=== PATIENT | male | born 1965 | race Caucasian/White ===

== ENCOUNTER → 2021-06-04 11:19 | Outpatient (CLI) | payer OTHER, SELFPAY ==
--- NOTE | ~2021-06-04 | US_ITS ---
EXAMINATION: US scrotum doppler EXAM DATE: 06/04/2021 11:47 INDICATION: Left testicular swelling . TECHNIQUE: Multiple grayscale and Doppler images of the testicles and scrotum were obtained bilateral ly. There is no prior study for comparison. FINDINGS: Right testicle measures 4.8 x 3.1 x 3.8 cm and is morphologically normal. Low resistance Doppler lynn w confirmed. The epididymis is unremarkable. Small hydrocele. Left testicle measures 3.9 x 3.4 x 3.4 cm and is morphologically normal. Low resistance Doppler flow confirmed. Small epididymal cyst measuring 1 cm. There is a moderate to large sized hydrocele. IMPRESSION: 1. Moderate to large size left-sided hydrocele. 2. Small right hydrocele. Reviewed, dictated and finalized at location [facility]
== END ==
PROVIDERS: PCP Family Medicine; Visit Provider Family Medicine
DX: N50.89 Other specified disorders of the male genital organs (principal); N43.3 Hydrocele, unspecified
CPT/HCPCS: 76870; 93976

== ENCOUNTER 2022-12-15 01:20 | Day surgery (SDC) | payer OTHER, SELFPAY ==
[2022-12-07 12:48] VITALS: BMI 30.5
--- NOTE | 2022-12-07 13:14 | PC.NURSE ---
Report to the Outpatient Waiting Room, entrance under the green pavilion located off [facility], at time __0630 on date _12/15/22 . Planned Procedure Time: _0830 . Time changes happen often and if your time is changed the preop area will call you the afternoon before. - You and your visitor will be asked to self-screen and do not enter if you have any COVID symptoms. - A mask is optional within the hospital at this time. Patients may have clear liquids (water, carbonated beverages, clear teas, apple juice) until 3 hours prior to surgery with a maximum of 20 ounces. - No food from midnight until time of surgery Take the following medications with a SIP of water the morning of surgery: _AMIODORONE; METOPROLOL DO NOT STOP ANY OF YOUR OTHER PRESCRIPTION MEDICATIONS PRIOR TO SURGERY ?EXCEPT THE FOLLOWING Medications to discontinue per physician _ASA AND PLAVIX D/C 12/07/22 ELIQUIS D/C 12/09/22 PER YOUR MD'S PRIOR INSTRUCTION Date to take last dose Please no make-up, nail croatian, hairspray, perfume, deodorant, or body powder the day of surgery. No jewelry (including any body piercings) or valuables the day of surgery, leave them at home. Please take a shower or bath the night before, or the morning of, surgery with an antibacterial soap. Wear comfortable, loose fitting clothing. - Jewelry must be removed prior to entering the operating room. Rings and piercings that are not removed may be cut off. - The hospital will not accept responsibility for valuables. - Please leave all valuables, including medications, at home the day of surgery. If you are going home after surgery, a licensed motorcoach driver must drive you home. - NO public transportation without another adult if you receive anesthesia. - We recommend that an adult stay with you for 24 hours following discharge. - We also recommend that you do not drive, make important decision, drink alcoholic beverages, or take any drugs that were not prescribed by your health care provider for at least 24 hours after your discharge time. Follow any additional instructions given to you from your surgeon. If you or anyone in your household have experienced Covid symptoms in the past week, please notify your surgeon or the nurse liaison at the phone number below for possible testing. Telephone instructions given to _RON__and asked if any additional questions and then verbalized understanding. Patient advised to call surgeon office or pre surgery nurse liaison [phone] if any additional questions.
--- NOTE | 2022-12-14 11:36 | WPDANESEPPF ---
Anes - Initial Pre Proc Eval Procedure: Operation Date: 12/15/22 08:30 Proposed Procedures p Left Hydrocelectomy with Orchiopexy - Justino Taylor MD Date/Time: 12/14/22 11:36 Surgeon: Justino Taylor MD Pre Op Diagnosis: Hydrocele Patient Data Age: 57 Gender: M Height: 1.98 m Weight: 120 kg Allergies Allergy/AdvReac Type Severity Reaction Status Date / Time Penicillins Allergy Intermediate Hives Verified 12/15/22 07:13 Home Medications Medication Instructions Recorded Confirmed Type amiodarone 200 mg tablet 200 mg PO DAILY 12/07/22 12/15/22 History apixaban 5 mg tablet (Eliquis) 5 mg PO DAILY 12/07/22 12/15/22 History aspirin 81 mg chewable tablet 81 mg PO DAILY 12/07/22 12/15/22 History atorvastatin 40 mg tablet 40 mg PO DAILY 12/07/22 12/15/22 History clopidogrel 75 mg tablet 75 mg PO DAILY 12/07/22 12/15/22 History empagliflozin 10 mg tablet 10 mg PO DAILY 12/07/22 12/15/22 History (Jardiance) metoprolol succinate 50 mg 25 mg PO BID 12/07/22 12/15/22 History tablet,extended release 24 hr sacubitril 49 mg-valsartan 51 mg 1 tablet PO BID 12/07/22 12/15/22 History tablet (Entresto) spironolactone 25 mg tablet 25 mg PO DAILY 12/07/22 12/15/22 History Patient hx anesthesia problems: none Family hx anesthesia problems: none Results Review: All pre-operative results and documents have been reviewed as part of the pre-operative evaluation. [facility] Past Medical History Medical History (Updated 12/14/22 @ 11:37 by Nicko Gonzalez DO) Atrial fibrillation History of heart attack Surgical History Surgical History (Updated 12/14/22 @ 11:37 by Nicko Gonzalez DO) History of coronary artery stent placement 02/2022 Social History Social History (Updated 12/15/22 @ 07:59 by Nicko Gonzalez DO) Smoking packs per day: 1 Smoking cigarettes per day: 20.0 Years smoked: 15 Smoking pack-years: 15.00 Smoking status: Former smoker Tobacco type: smokeless tobacco Smokeless tobacco user: chewing tobacco and snuff Alcohol intake: current Alcohol use details: 8-10 beers/day Substance use type: marijuana Other substance usage details: SMOKES + EDIBLES daily Last use: 12/07/22 Living arrangements: with family Spiritual care concerns: No Anes - Eval Final PreProcedure Day of Procedure 12/14/22 11:36 Patient weight: obese Heart: regular rate and rhythm Lungs: clear to auscultation Airway: Mallampati scale class II Neurological: alert and oriented Last oral intake: >/= 8 hours ASA classification: III Emergent: no Anesthetic plan: proceed Anesthesia type and monitoring: general GIVS and standard monitoring Results Review: All pre-operative results and documents have been reviewed as part of the pre-operative evaluation. Informed Consent: The patient's anesthetic plan and its attendant risks and benefits were discussed with the patient/family/POA. Questions were solicited and answers provided to the satisfaction of the patient/family/POA.
[2022-12-15] VITALS (7 sets, daily range): BP systolic 107–130; BP diastolic 71–79; PULSE 44–62; RESP 12–17; TEMP 36–36.7; O2SAT 92–100
[2022-12-15] MEDS: LACTATED RINGERS 1,000 ML 30 ML IV CONT ×2 (07:32→09:21)
--- NOTE | 2022-12-15 07:39 | WPDHPUPDATE1 ---
History and Physical Update Update Date/Time: 12/15/22 07:39 History and Physical has been reviewed, including an updated exam of the patient. There are NO changes in the patient's condition. Risks, benefits, and alternatives have been discussed and questions answered. Patient agrees to proceed with procedure. Proceed with left hydrocelectomy, orchiopexy
[2022-12-15 07:45] LABS: Anion Gap 6 mmol/L (8-16); Blood Urea Nitrogen 16 mg/dL (9-20); Calcium 8.8 mg/dL (8.4-10.2); Carbon Dioxide 29 mmol/L (22-30); Chloride 101 mmol/L (98-107); Estimated CRCL calculation 148 ml/min; Estimated Glomerular Filt Rate > 60; Glucose 103 mg/dL (65-110); Potassium 4.2 mmol/L (3.4-5.0); Sodium 136 mmol/L (137-145)
[2022-12-15] MEDS: ceFAZolin 3 GM/D5W 100 ML 100 ML IVPB (08:24)
[2022-12-15] MEDS: LIDOCAINE HCL 1% LOCAL INJ 20 ML VIAL INFILTRATE (08:24)
[2022-12-15] MEDS: NEOMYCIN/POLYMYXIN B/PRAMOXINE 15 GM CREAM 1 APPLIC TOPICAL (09:04)
--- NOTE | 2022-12-15 09:16 | W.PM.PROC2 ---
Procedure Note - Detailed Date of Procedure 12/15/22 Pre-op Diagnosis Left hydrocele Post-op Diagnosis Same Procedure Performed Left hydrocelectomy with left orchiopexy Surgeon Justino Taylor MD Anesthesia General Description of Procedure Patient is taken to the operative suite correctly identified. Once anesthesia was obtained he was prepped and draped usual sterile fashion. Transverse incision was then made the left hemiscrotum. This carried down to the tunical layers. The hydrocele sac was then brought onto the operative field. I opened up the hydrocele sac and drained 510 cc of straw-colored fluid. Excess tissue was then excised and the edges were fulgurated. Appendix testes was removed. Orchiopexy was then performed using Ethibond and a 3 point fixation. Quarter-inch Gadsden drain was placed through the separate stab incision. Tunica was closed using 3-0 chromic in a running fashion. Subcuticular stitches were placed. The incision was anesthetized 1% lidocaine. Antibiotic ointment was placed on the incision and a scrotal support. Patient tolerated procedure well without any complications and was taken recovery stable condition. He will remove the drain on or Wednesday if there is minimal drainage. Follow-up in 2-3 weeks time. This completes dictation please send a copy to my office Estimated Blood Loss 0 Drains Yes Packing No Pathology Yes Complications No immediate complications Condition Stable Disposition PACU
[2022-12-15 09:31] LABS: Glucose Point of Care 128 mg/dl (65-105)
[2022-12-15] MEDS: oxyCODONE HCL (*CRX) 5 MG TAB IR PO (10:18)
== END 2022-12-15 10:57 | disposition home or self-care (01) ==
PROVIDERS: Anesthesiology; PCP Family Medicine; Visit Provider Urology
PROC: (CPT 55040; principal; 2022-12-15 08:30)
DX: N43.3 Hydrocele, unspecified (principal); I48.91 Unspecified atrial fibrillation; I25.2 Old myocardial infarction; Z95.5 Presence of coronary angioplasty implant and graft; F17.220 Nicotine dependence, chewing tobacco, uncomplicated; E66.9 Obesity, unspecified; Z68.31 Body mass index [BMI] 31.0-31.9, adult; Z79.01 Long term (current) use of anticoagulants; Z79.82 Long term (current) use of aspirin; Z79.02 Long term (current) use of antithrombotics/antiplatelets; Z79.84 Long term (current) use of oral hypoglycemic drugs
CPT/HCPCS: 55040; 54640; 36415; 80048; 82948; 88302; A9270; J0461; J0690; J1100; J1170; J2250; J2405; J2704; J3010; J7120

== ENCOUNTER 2024-08-01 10:57 | Outpatient (CLI) | payer OTHER, SELFPAY ==
--- NOTE | ~2024-08-01 | XR_ITS ---
Clinical Indication: Cough PA and lateral views of the chest: Comparison: 06/04/2018 Findings: The lungs are clear, without evidence of focal consolidation or pleural effusion. Stable el evation right hemidiaphragm noted. Cardiomediastinal silhouette is within normal limits. Bones and so ft tissues are unremarkable. Impression: Clear lungs. Stable elevation right hemidiaphragm. Reviewed, dictated and finalized at location . Impression: Clear lungs. Stable elevation right hemidiaphragm.
--- OUTSIDE RECORDS SUMMARY | 2024-08-01 12:35 | XMS_ITS | Referral Summary ---
Author Organization [facility] Office Building A Address [address] [place] [address] Care Team Providers Care Blood And Plasma Laboratory Assistant Name Role Phone Moisés Lawson MD Primary Care Provide r Tushar Ramsey MD Unavailable [phone] Allergies Active Allergy Reactions Criticality Noted Date Comments Penicillins Unknown 12/29/2017 Hives when I was 5 years old Medications aspirin 81 mg enteric coated tablet Take 1 tablet (81 mg total) by mouth daily Active amiodarone (PACERONE) 200 mg tablet Take 1 tablet (200 mg total) by mouth daily 90 tablet 3 01/05/2024 5 Active apixaban (Eliquis) 5 mg tablet Take 1 tablet (5 mg total) by mouth 2 (two) times a day 180 tablet 3 01/05/2024 5 Active atorvastatin (LIPITOR) 40 mg tablet Take 1 tablet (40 mg total) by mouth daily 90 tablet 3 01/05/2024 5 Active empagliflozin (JARDIANCE) 10 mg tabletIndicatio ns:Heart Failure Take 1 tablet (10 mg total) by mouth daily 90 tablet 3 01/05/2024 5 Active metoprolol XL (TOPROL-XL) 25 mg extended release tablet Take 0.5 tablets (12.5 mg total) by mouth 2 (two) times a day 90 tablet 3 01/05/2024 5 Active sacubitriL-vals kaitlin (ENTRESTO) 49-51 mg tabletIndicatio ns:chronic heart failure Take 1 tablet by mouth 2 (two) times a day 180 tablet 3 01/05/2024 Active spironolactone (ALDACTONE) 25 mg tablet Take 1 tablet (25 mg total) by mouth daily 90 tablet 3 01/05/2024 5 Active Active Problems Problem Noted Date Diagnosed Date Atrial fibrillation with RVR 04/15/2022 Chest pain 04/15/2022 Overview (04/16/2022): Added automatically from request for surgery [id number] Ischemic cardiomyopathy Elevated brain natriuretic peptide (BNP) level Troponin level elevated Social History Tobacco Use Types Packs/Day Years Used Date Smoking Tobacco: Some Days Cigarettes Smokeless Tobacco: Current Tobacco Cessation:Ready to Q uit: Not Asked; Counseling Given: Not Answered Alcohol Use Standard Drinks/Week Comments Yes 0 (1 standard drink = 0.6 oz pur e alcohol) Social Connection and Isolat ion Panel [NHANES] Answer Date Recorded In a typical week, how many times do you talk on the phone with family, friends, or neighbors? More than three times a week 04/16/2022 How often do you get togethe r with friends or relatives? More than three times a week 04/16/2022 How often do you attend chur ch or taoist services? Never 04/16/2022 Do you belong to any clubs o r organizations such as jainism groups, unions, fraternal or athletic groups, or school groups? Yes 04/16/2022 How often do you attend meet ings of the clubs or organizations you belong to? More than 4 times per year 04/16/2022 Are you , , di vorced, , never , or living with a partner? 04/16/2022 Overall Financial Resource Strain (CARDIA) Answe r Date Recorded How hard is it for you to pa y for the very basics like food, housing, medical care, and heating? Not hard at all 04/16/2022 PRAPARE - Transportation Answer Date Re corded In the past 12 months, has l ack of transportation kept you from medical appointments or from getting medications? No 05/2021 In the past 12 months, has l ack of transportation kept you from meetings, work, or from getting things needed for daily living? No 04/16/2022 Education Answer Date Recorded What is the highest level of school you have completed or the highest degree you have received? Associate degree: occupational, technical, or vocational program 04/16/2022 Sex and Gender Information Value Date Recorded Sex Assigned at Not on file Legal Sex Male 7:40 PM DIRECTOR MBA Gender Identity Not on file Sexual Orientation Not on file Last Filed Vital Signs Vital Sign Reading Time Taken Comments Blood Pressure 130/66 04/06/2024 12:38 PM DIRECTOR MBA Pulse 50 04/06/2024 12:38 PM DIRECTOR MBA Temperature 36.3 C (97.3 F) 04/17/2022 3:24 PM DIRECTOR MBA Respiratory Rate 18 10/21/2023 8:49 AM CDT Oxygen Saturation 96% 04/17/2022 3:24 PM DIRECTOR MBA Inhaled Oxygen Concentration - - Weight 131.5 kg (290 lb) 04/06/2024 12:38 PM DIRECTOR MBA Height 198.1 cm (6' 6 ) 04/06/2024 12:38 PM DIRECTOR MBA Body Mass Index 33.51 04/06/2024 12:38 PM DIRECTOR MBA Plan of Treatment Not on file Medical Devices Implanted Type Area Facility Maintenance Helper Device Identifier Shelf Expiration Date Model / Serial / Lot [employer] Jackie Synergy Xd Monorail 3mm 20mm 144cm Delivery System 1 Access Port [id number] - [id number] Implanted:Qty: 1 on 04/16/2022 by Alfonzo Marinelli MD at [facility] N/A: Groin [employer] Jackie 08/22/2023 [id number] / / [id number] [employer] Jackie Angio-Seal Evolution 6fr Vascular Closure [id number] - [id number] Implanted:Qty: 1 on 04/16/2022 by Alfonzo Marinelli MD at [facility] N/A: Groin [employer] Jackie 04/15/2022 [id number] / / [id number] [place] [address] Advance Directives For more information, please contact: [phone] * Full Code (Latest Code Status on File) Date Activated Date Inactivated Comments 04/16/2022 8:01 AM 04/17/2022 10:51 PM Care Teams Blood And Plasma Laboratory Assistant Relationship Specialty Start Date End Date Moisés Lawson MD [address] [place] [address] PCP - General 06/18/17 Tushar Ramsey MD [address] [place] [address] Consulting Physician Cardiovascular Disease 04/17/22
--- OUTSIDE RECORDS SUMMARY | 2024-08-01 12:35 | XMS_ITS | Clinical Summary ---
Author Organization [facility] Office Building A Address [address] [place] [address] Care Team Providers Care Over The Horizon Targeting Supervisor Name Role Phone Moisés Lawson MD Primary Care Provide r Tushar Ramsey MD Unavailable [phone] Allergies Active Allergy Reactions Criticality Noted Date [...] (04/16/2022): Added automatically from request for surgery [id number] Ischemic cardiomyopathy Elevated brain natriuretic peptide (BNP) level Troponin level elevated Surgical History Surgery Date Site/Laterality Comments NO PAST SURGERIES Medical History Medical History Date Comments Atrial fibrillation with RVR (HCC) HTN (hypertension) Marijuana use Tobacco use Social History Tobacco Use Types Packs/Day Years [...] often do you attend chur ch or rastafarian services? Never 04/16/2022 Do you belong to any clubs o r organizations such as synagogue groups, unions, fraternal or athletic groups, or [...] on file Legal Sex Male 7:40 PM MAILING MANAGER Gender Identity Not on file Sexual Orientation Not on file Obstetrics History Last Filed Vital Signs Vital Sign Reading Time Taken Comments Blood Pressure 130/66 04/06/2024 12:38 PM MAILING MANAGER Pulse 50 04/06/2024 12:38 PM MAILING MANAGER Temperature 36.3 C (97.3 F) 04/17/2022 3:24 PM MAILING MANAGER Respiratory Rate 18 10/21/2023 8:49 AM CDT Oxygen Saturation 96% 04/17/2022 3:24 PM MAILING MANAGER Inhaled Oxygen Concentration - - Weight 131.5 kg (290 lb) 04/06/2024 12:38 PM MAILING MANAGER Height 198.1 cm (6' 6 ) 04/06/2024 12:38 PM MAILING MANAGER Body Mass Index 33.51 04/06/2024 12:38 PM MAILING MANAGER Plan of Treatment Health Maintenance Due Date Last Done Comments Colon Cancer Screening-Colonoscopy 1965 Depression Screening 1965 Hepatitis C Screening 1965 Prostate Cancer Screening-PSA 1965 Hepatitis B Screening 1983 Regular Well Visit/Exam 18-64 1983 Pneumococcal vaccine <65 (1 of 2 - PCV) 1984 Zoster Vaccine (1 of 2) 2015 Influenza Vaccine (#1) 2024 03/16/2019 DTaP/Tdap/Td Vaccine (2 - Td or Tdap) 10/30/2026 Medical Devices Implanted Type Area Chief Psychologist Device Identifier Shelf Expiration Date Model / Serial / Lot [employer] Jackie Synergy Xd Monorail 3mm 20mm 144cm Delivery System 1 Access Port [id number] - [id number] Implanted:Qty: 1 on 04/16/2022 by Alfonzo Marinelli MD at [facility] N/A: Groin [employer] 08/22/2023 [id number] / / [id number] [employer] Jackie Angio-Seal Evolution 6fr Vascular Closure [id number] - [id number] Implanted:Qty: 1 on 04/16/2022 by Alfonzo Marinelli MD at [facility] N/A: Groin [employer] Jackie 04/15/2022 [id number] / / [id number] Insurance MEDICARE SOLUTIONS Advance Directives For more information, please contact: [phone] * Full Code (Latest Code Status on File) Date Activated Date Inactivated Comments 04/16/2022 8:01 AM 04/17/2022 10:51 PM Care Teams Over The Horizon Targeting Supervisor Relationship Specialty Start Date End Date Moisés Lawson MD [address] [place] [address] PCP - General 06/18/17 Tushar Ramsey MD [address] [place] [address] Consulting Physician Cardiovascular Disease 04/17/22
--- OUTSIDE RECORDS SUMMARY | 2024-08-01 12:35 | XMS_ITS | Clinical Summary ---
Author Organization [facility] Address [address] [place] [address] Care Team Providers Care Engineering Design Supervisor Name Role Phone Unavailable Primary Care Provider Unavailabl e Source Comments [facility],non-owned Affiliates and Associated Physician Practices is amultiple site organization consisting of ambulatory clinics and hospital sitesin [place], [place], [place] and [place]. This disclosure is being madepursuant to the Care Everywhere program and may not contain all information available regarding this patient. Last updated 18.[facility] Allergies No known active allergies Social History Tobacco Use Types Packs/Day Years Used Date Smoking Tobacco: Never Assessed Sex and Gender Information Value Date Recorded Sex Assigned at Not on file Gender Identity Not on file Sexual Orientation Not on file Plan of Treatment Health Maintenance Due Date Last Done Comments COLOGUARD (AGES 45-75) - COL ON CA SCREENING 1965 COLON MONITORING 1965 COLONOSCOPY - COLON CA SCREENING 1965 CT COLONOGRAPHY - COLON CA SCREENING 1965 Colorectal Cancer Screening 1965 FIT - COLON CA SCREENING 1965 FLEX SIG - COLON CA SCREENING 1965 LIPID TESTING 1965 HIV SCREENING 1980 HEPATITIS C SCREENING 03/25/1983 DTAP/TDAP/TD VACCINES (1 - Tdap) 1984 HEPATITIS B VACCINE (1 of 3 - 19+ 3-dose series) 1984 PNEUMOCOCCAL VACCINE 50+ (1 of 1 - PCV) 2015 ZOSTER VACCINE (1 of 2) 2015 COVID-19 VACCINE ( - 2023-2 5 season) 2024 INFLUENZA VACCINE (#1) 2024 DEPRESSION SCREENING 05/17/2024 MEDICARE AWV CALENDAR YEAR 2024 HIB VACCINE Aged Out No longer eligi ble based on patient's age to complete this topic HPV VACCINE Aged Out No longer eligi ble based on patient's age to complete this topic MENINGOCOCCAL (Group B) VACC INE SHARED DECISION-MAKING Aged Out No longer eligibl e based on patient's age to complete this topic MENINGOCOCCAL GROUPS A/C/Y/W VACCINE Aged Out No longer eligible b ased on patient's age to complete this topic PNEUMOCOCCAL VACCINE Aged Out No long er eligible based on patient's age to complete this topic
--- OUTSIDE RECORDS SUMMARY | 2024-08-01 12:35 | XMS_ITS | Clinical Summary ---
Author Organization [facility] Address [address] [place] [address] Phone Care Team Providers Care Scrap Charger Name Role Phone Moisés Lawson MD Primary Care Provider Allergies Active Allergy Reactions Criticality Noted Date Comments Penicillins Unknown 12/29/2017 Hives when I was 5 years old Medications benazepril (LOTENSIN) 40 MG Tablet Take 40 mg by mouth daily. Active amiodarone (CORDARONE) 200 MG TabletIndication s: TAKE TWO TABLETS BY MOUTH ONCE DAILY Take 200 mg by mouth daily. Active metoprolol tartrate (LOPRESSOR) 50 MG Tablet Take 50 mg by mouth 2 times daily. Active dilTIAZem (CARTIA XT) 180 MG CAPSULE SR 24 HR Take 180 mg by mouth daily. Active apixaban (ELIQUIS) 5 MG Tablet Take 5 mg by mouth 2 times daily. Active Family History Medical History Relation Name Comments Alzheimer's Disease Father Chronic Obstructive Pulmonary Disease Mother Relation Name Status Comments Father Mother Social History Tobacco Use Types Packs/Day Years Used Date Smoking Tobacco: Former Smokeless Tobacco: Current Chew Alcohol Use Standard Drinks/Week Comments Yes 6 (1 standard drink = 0.6 oz pur e alcohol) DAILY Sex and Gender Information Value Date Recorded Sex Assigned at Not on file Legal Sex Male 10:41 PM CDT Gender Identity Not on file Sexual Orientation Not on file Last Filed Vital Signs Vital Sign Reading Time Taken Comments Blood Pressure 130/80 12/31/2017 2:00 PM CDT Pulse 80 12/31/2017 2:00 PM CDT Temperature 36 C (96.8 F) 12/31/2017 2:00 PM CDT Respiratory Rate 18 12/31/2017 2:00 PM CDT Oxygen Saturation 96% 12/31/2017 2:00 PM CDT Inhaled Oxygen Concentration - - Weight 132.5 kg (292 lb) 12/29/2017 9:00 AM CDT Height 198.1 cm (6' 6 ) 12/29/2017 9:00 AM CDT Body Mass Index 33.74 12/29/2017 9:00 AM CDT Plan of Treatment Health Maintenance Due Date Last Done Comments Hepatitis C Virus (HCV) Screening 1965 TdaP Immunization 1965 Hepatitis B Immunization (1 of 3 - 19+ 3-dose series) 1984 Colonoscopy 2010 Colorectal Cancer Screening 2010 Cologuard 2015 Immunochemical Fecal Occult Blood 2015 Pneumococcal Immunization (5 0+ years) (1 of 1 - PCV) 2015 Zoster Immunization (1 of 2) 2015 PSA Discussion 2020 Influenza Immunization (#1) 2024 SARS-COV-2 Immunization ( season) 2024 06/05/2021, 11/04/2020, 10/04/2020 Respiratory Syncytial Virus (RSV) Immunization (Adult) (1 - 1-dose 75+ series) 2040 Meningococcal Immunization (ACWY) Aged Out No longer eligible b ased on patient's age to complete this topic Pneumococcal Immunization Combined Aged Out No longer eligible b ased on patient's age to complete this topic Rotavirus Immunization Aged Out No lo nger eligible based on patient's age to complete this topic Insurance [facility] Care Teams Scrap Charger Relationship Specialty Start Date End Date Moisés Lawson MD [address] [place] [address] PCP - General Pediatrics 05/24/17
== END 2024-08-01 10:58 | disposition home or self-care (01) ==
PROVIDERS: PCP Family Medicine; Visit Provider Family Medicine
DX: R05.2 Subacute cough (principal); R91.8 Other nonspecific abnormal finding of lung field
CPT/HCPCS: 71046